=== PATIENT | male | born 1985 | race Caucasian/White ===

== ENCOUNTER 2020-08-31 02:56 | Emergency (ER) | payer MEDICAID ==
--- NOTE | 2020-08-31 03:46 | EDM.PDOC ---
ED HPI GENERAL MEDICAL PROBLEM - General Chief Complaint: General Stated Complaint: anxiety Time Seen by Provider: 08/31/20 03:15 Source of Information: Reports: Patient History Limitations: Reports: Other (admits to meth use) - History of Present Illness INITIAL COMMENTS - FREE TEXT/NARRATIVE: Alex is a 34 year old male who presents to ER with increased anxiety and worries in regards to possibly having the "hanta virus". States he has been hearing rats/mice crawling through his [place] in his home. States feels they are invested there after a building was torn down about 2 blocks from his house and settled in his home. He has not found any rats nor any droppings but states "worries that there is a 36% chance if he has Hanta virus he will ". States 3 nights ago "he then woke up after he was choking on phlegm in his throat". Worried the phlegm is from his lungs. Denies shortness of breath or fever but admits he "cannot take a deep breath due to all of his meth use in the past". Admits to using meth daily, had it this evening. History of panic attacks and anxiety, has been on Ativan in the past but now prays and that finds him relief. Tonight that did not work as he was afraid for his lungs. Patient has considerable flight of ideas, continually jumping from one topic to the next, ie. his child, his father, his wood burning stove, his house falling down, odd jobs he has been doing, praying, etc. Shares that he was being seen by a psychiatrist as well in [place] and was diagnosed with ADHD and placed on Adderall as well as bipolar disorder. Onset: Gradual Duration: Day(s):, Waxing/Waning Location: Reports: Generalized Associated Symptoms: Reports: Shortness of Breath. Denies: Confusion, Chest Pain, Cough, Diaphoresis, Fever/Chills, Loss of Appetite, Nausea/Vomiting, Seizure - Related Data Allergies Allergy/AdvReac Type Severity Reaction Status Date / Time No Known Allergies Allergy Verified 08/31/20 02:57 Home Meds: Home Meds Amphetamine/Dextroamphetamine [Adderall] 20 mg PO DAILY 08/31/20 [History] Past Medical History Psychiatric History: Reports: Addiction, Bipolar, OCD Social & Family History - Family History Family Medical History: No Pertinent Family History - Tobacco Use Tobacco Use Status *Q: Current Every Day Tobacco User Years of Tobacco use: 20 Packs/Tins Daily: 0.5 - Caffeine Use Caffeine Use: Reports: Coffee - Recreational Drug Use Recreational Drug Use: Yes Recreational Drug Type: Reports: Marijuana/Hashish, Methamphetamine Recreational Drug Use Frequency: Daily ED ROS GENERAL - Review of Systems Review Of Systems: See Below Constitutional: Denies: Fever, Chills, Malaise, Weakness, Fatigue, Decreased Appetite HEENT: Reports: Rhinitis. Denies: Ear Pain, Sinus Problem, Throat Pain Respiratory: Reports: Shortness of Breath, Sputum (one time episode 3 days ago). Denies: Wheezing, Pleuritic Chest Pain, Cough Cardiovascular: Denies: Chest Pain, Edema, Lightheadedness Endocrine: Denies: Fatigue GI/Abdominal: Reports: Constipation. Denies: Abdominal Pain, Diarrhea, Nausea, Vomiting : Reports: No Symptoms Musculoskeletal: Reports: No Symptoms Skin: Reports: No Symptoms Neurological: Denies: Dizziness, Headache Psychiatric: Reports: Anxiety ED EXAM, GENERAL - Physical Exam Exam: See Below Exam Limited By: Intoxication (meth use) General Appearance: Alert, WD/WN, No Apparent Distress Ears: Normal External Exam, Normal TMs Nose: Normal Inspection, Normal Mucosa, No Blood Throat/Mouth: Normal Inspection, Normal Oropharynx Head: Normocephalic Neck: Normal Inspection, Supple, Non-Tender Respiratory/Chest: No Respiratory Distress, Lungs Clear, Normal Breath Sounds Cardiovascular: Regular Rate, Rhythm Extremities: Normal Inspection, No Pedal Edema Neurological: Alert, Oriented Psychiatric: Anxious Skin Exam: Warm, Dry Course - Vital Signs Last Recorded V/S: Last Vital Signs Temp 97.4 F 08/31/20 02:59 Pulse 79 08/31/20 02:59 Resp 18 08/31/20 02:59 BP 131/102 H 08/31/20 02:59 Pulse Ox 98 08/31/20 02:59 - Re-Assessments/Exams Free Text/Narrative Re-Assessment/Exam: 08/31/20 Much discussion/conversation with patient. More relaxed than on arrival. Reassured of normal exam and stable vital signs. Discussed a dose of Ativan to help him relax and a different place to stay due to worries about his home but states he will sleep in his garage tonight. Declines the Ativan, states "will just pray more as that helps me through". ADvised to return if any change in breathing, fevers or worsening concerns. Departure - Departure Time of Disposition: 03:44 Disposition: Home, Self-Care 01 Condition: Undetermined Clinical Impression: Anxiety - Discharge Information *PRESCRIPTION DRUG MONITORING PROGRAM REVIEWED*: No *COPY OF PRESCRIPTION DRUG MONITORING REPORT IN PATIENT DAMIEN: No Instructions: Managing Anxiety, Adult Referrals: Lakshmi Majano PA [Primary Care Provider] - Forms: ED Department Discharge Additional Instructions: 1. Rest 2. If develop changes in breathing, fevers, nausea or vomiting, return to ER or follow up with your provider for anxiety 3. Call with any questions Sepsis Event Note (ED) - Evaluation Sepsis Screening Result: No Definite Risk
== END 2020-08-31 03:50 | disposition home or self-care (01) ==
LOC: CC.ED 02:56
DX: F41.9 Anxiety disorder, unspecified (principal); Z72.0 Tobacco use
CPT/HCPCS: 99283

== ENCOUNTER 2020-09-14 20:27 | Emergency (ER) | payer MEDICAID ==
--- NOTE | 2020-09-14 20:58 | EDM.PDOC ---
ED HPI GENERAL MEDICAL PROBLEM - General Chief Complaint: General Stated Complaint: stomach burning Time Seen by Provider: 09/14/20 20:45 Source of Information: Reports: Patient History Limitations: Reports: Other (flight of ideas) - History of Present Illness INITIAL COMMENTS - FREE TEXT/NARRATIVE: Troy is a 34 yo male who presents to the ED with c/o burning stomach. He repo rts he feels like he did the last time when he was seen here and thinks its either his "body filling with hydrochloric acid, the coronavirus or the hanta virus." He was tested for the hantavirus a few weeks back when he presented with the same complaint and was negative. He reports there are "multiple rodents in the [place] of his house." He reports he has read it takes 10-14 days for the hanta virus to set in and he has had repeat exposure to these rodents. He reports he was unable to sleep last night as the "rodents were so loud." Reports he has a burning sensation in his abdomen. Does report he feels like something is stuck in his throat. Denies any change in diet. Denies any abdominal pain, fever, chest pain, shortness of breath. Reports occasional nausea. No vomiting. He does report daily meth use. He reports he has been a chronic user for a number of years. He does have flight of ideas while describing the situation/his symptoms. He feels like he needs to see a specialist for his body filling with hydrochloric acid. Duration: Getting Worse Location: Reports: Abdomen Quality: Reports: Burning Associated Symptoms: Reports: Nausea/Vomiting (nausea, no vomiting). Denies: Confusion, Chest Pain, Cough, cough w sputum, Diaphoresis, Fever/Chills, Headaches, Loss of Appetite, Malaise, Rash, Seizure, Shortness of Breath, Syncope, Weakness - Related Data Allergies Allergy/AdvReac Type Severity Reaction Status Date / Time No Known Allergies Allergy Verified 08/31/20 02:57 Home Meds: Home Meds Amphetamine/Dextroamphetamine [Adderall] 20 mg PO DAILY 08/31/20 [History] Pantoprazole Sodium [Protonix] 40 mg PO DAILY #30 tablet. 09/14/20 [Rx] Past Medical History Psychiatric History: Reports: Addiction, Bipolar, OCD Social & Family History - Family History Family Medical History: No Pertinent Family History - Tobacco Use Tobacco Use Status *Q: Current Every Day Tobacco User - Caffeine Use Caffeine Use: Reports: Coffee - Recreational Drug Use Recreational Drug Use: Yes Recreational Drug Type: Reports: Methamphetamine Recreational Drug Use Frequency: Daily ED ROS GENERAL - Review of Systems Review Of Systems: Comprehensive ROS is negative, except as noted in HPI. ED EXAM, GENERAL - Physical Exam Exam: See Below General Appearance: Alert, WD/WN, No Apparent Distress, Anxious Eye Exam: Bilateral Eye: EOMI, Normal Fundi, Normal Inspection, PERRL Throat/Mouth: Normal Inspection, Normal Lips, Normal Teeth, Normal Gums, Normal Oropharynx, Normal Voice, No Airway Compromise Head: Atraumatic, Normocephalic Neck: Normal Inspection, Supple, Non-Tender, Full Range of Motion Respiratory/Chest: No Respiratory Distress, Lungs Clear, Normal Breath Sounds, No Accessory Muscle Use, Chest Non-Tender Cardiovascular: Normal Peripheral Pulses, Regular Rate, Rhythm, No Edema, No Gallop, No JVD, No Murmur, No Rub GI/Abdominal: Normal Bowel Sounds, Soft, Tender (mild tenderness epigastric area) Back Exam: Normal Inspection, Full Range of Motion, NT Extremities: Normal Inspection, Normal Range of Motion, Non-Tender, Normal Capillary Refill, No Pedal Edema Neurological: Alert, Oriented, No Motor/Sensory Deficits Psychiatric: Anxious, Other (flight of ideas ) Skin Exam: Warm, Dry Lymphatic: No Adenopathy Course - Orders/Labs/Meds Labs: Laboratory Tests 09/14/20 09/14/20 09/14/20 Range/Units 20:50 20:50 20:50 WBC 6.8 (5.0-10.0) 10^3/uL RBC 4.97 (4.50-6.00) 10^6/uL Hgb 15.7 (14.0-18.0) g/dL Hct 43.9 (40.0-54.0) % MCV 88.3 (82.0-94.0) fL MCH 31.6 (27.0-32.0) pg MCHC 35.8 (33.0-38.0) g/dL RDW Coeff of Vladimir 12.6 (11.0-15.0) % Plt Count 200 (150-400) 10^3/uL Neut % (Auto) 60.9 (35-85) % Lymph % (Auto) 28.3 (10-55) % [place] % (Auto) 9.0 (0-16) % Eos % (Auto) 1.5 (0-5) % Baso % (Auto) 0.3 (0-3) % Neut # (Auto) 4.11 (1.80-7.00) 10^3/uL Lymph # (Auto) 1.91 (1.00-4.80) 10^3/uL [place] # (Auto) 0.61 (0.00-0.80) 10^3/uL Eos # (Auto) 0.10 (0.00-0.45) 10^3/uL Baso # (Auto) 0.02 10^3/uL Sodium 140 (136-145) mEq/L Potassium 3.7 (3.5-5.0) mEq/L Chloride 102 (98-106) mEq/L Carbon Dioxide 26 (21-32) mmol/L BUN 25 H D (7-18) mg/dL Creatinine 0.9 (0.7-1.3) mg/dL Est Cr Clr Drug Dosing TNP Estimated GFR (MDRD) > 60 (>=60) mL/min Glucose 96 (75-99) mg/dL Calcium 8.7 (8.4-10.1) mg/dL Total Bilirubin 0.8 (0.0-1.0) mg/dL AST 14 L (15-37) U/L ALT 27 (12-78) U/L Alkaline Phosphatase 56 (46-116) U/L C-Reactive Protein < 0.2 L (0.2-0.8) mg/dL Total Protein 7.4 (6.4-8.2) g/dL Albumin 4.2 (3.4-5.0) g/dL Urine Color (YELLOW) Urine Appearance (CLEAR) Urine pH (4.5-8.0) Ur Specific Camas (1.003-1.020) Urine Protein (NEGATIVE) mg/dL Urine Glucose (UA) (NEGATIVE) mg/dL Urine Ketones (NEGATIVE) mg/dL Urine Occult Blood (NEGATIVE) Urine Nitrite (NEGATIVE) Urine Bilirubin (NEGATIVE) Urine Urobilinogen (0.2-1.0) EU/dL Ur Leukocyte Esterase (NEGATIVE) Urine Opiates Screen (NEGATIVE) Ur Oxycodone Screen (NEGATIVE) Urine Methadone Screen (NEGATIVE) Ur Barbiturates Screen (NEGATIVE) U Tricyclic Antidepress (NEGATIVE) Ur Phencyclidine Scrn (NEGATIVE) Ur Amphetamine Screen (NEGATIVE) U Methamphetamines Scrn (NEGATIVE) Urine MDMA Screen (NEGATIVE) U Benzodiazepines Scrn (NEGATIVE) Urine Cocaine Screen (NEGATIVE) U Marijuana (THC) Screen (NEGATIVE) SARS CoV-2 RNA Rapid JOSÉ MIGUEL Negative (NEGATIVE) 09/14/20 09/14/20 Range/Units 21:20 21:20 WBC (5.0-10.0) 10^3/uL RBC (4.50-6.00) 10^6/uL Hgb (14.0-18.0) g/dL Hct (40.0-54.0) % MCV (82.0-94.0) fL MCH (27.0-32.0) pg MCHC (33.0-38.0) g/dL RDW Coeff of Vladimir (11.0-15.0) % Plt Count (150-400) 10^3/uL Neut % (Auto) (35-85) % Lymph % (Auto) (10-55) % [place] % (Auto) (0-16) % Eos % (Auto) (0-5) % Baso % (Auto) (0-3) % Neut # (Auto) (1.80-7.00) 10^3/uL Lymph # (Auto) (1.00-4.80) 10^3/uL [place] # (Auto) (0.00-0.80) 10^3/uL Eos # (Auto) (0.00-0.45) 10^3/uL Baso # (Auto) 10^3/uL Sodium (136-145) mEq/L Potassium (3.5-5.0) mEq/L Chloride (98-106) mEq/L Carbon Dioxide (21-32) mmol/L BUN (7-18) mg/dL Creatinine (0.7-1.3) mg/dL Est Cr Clr Drug Dosing Estimated GFR (MDRD) (>=60) mL/min Glucose (75-99) mg/dL Calcium (8.4-10.1) mg/dL Total Bilirubin (0.0-1.0) mg/dL AST (15-37) U/L ALT (12-78) U/L Alkaline Phosphatase (46-116) U/L C-Reactive Protein (0.2-0.8) mg/dL Total Protein (6.4-8.2) g/dL Albumin (3.4-5.0) g/dL Urine Color Yellow (YELLOW) Urine Appearance Clear (CLEAR) Urine pH 5.5 (4.5-8.0) Ur Specific Cam[place] >= 1.030 H (1.003-1.020) Urine Protein Negative (NEGATIVE) mg/dL Urine Glucose (UA) Negative (NEGATIVE) mg/dL Urine Ketones 15 H (NEGATIVE) mg/dL Urine Occult Blood Negative (NEGATIVE) Urine Nitrite Negative (NEGATIVE) Urine Bilirubin Negative (NEGATIVE) Urine Urobilinogen 0.2 (0.2-1.0) EU/dL Ur Leukocyte Esterase Negative (NEGATIVE) Urine Opiates Screen Negative (NEGATIVE) Ur Oxycodone Screen Negative (NEGATIVE) Urine Methadone Screen Negative (NEGATIVE) Ur Barbiturates Screen Negative (NEGATIVE) U Tricyclic Antidepress Negative (NEGATIVE) Ur Phencyclidine Scrn Negative (NEGATIVE) Ur Amphetamine Screen Positive H (NEGATIVE) U Methamphetamines Scrn Positive H (NEGATIVE) Urine MDMA Screen Positive H (NEGATIVE) U Benzodiazepines Scrn Negative (NEGATIVE) Urine Cocaine Screen Negative (NEGATIVE) U Marijuana (THC) Screen Positive H (NEGATIVE) SARS CoV-2 RNA Rapid JOSÉ MIGUEL (NEGATIVE) Meds: Medications Discontinued Medications Generic Name Dose Route Start Last Admin Trade Name Freq PRN Reason Stop Dose Admin Pantoprazole Sodium 40 mg 09/14/20 21:20 Pantoprazole 40 Mg Tab.Cr PO 09/14/20 21:21 STAT STA Departure - Departure Time of Disposition: 21:35 Disposition: Home, Self-Care 01 Condition: Good Clinical Impression: GERD (gastroesophageal reflux disease) Qualifiers: Esophagitis presence: without esophagitis Qualified Code(s): K21.9 - Gastro- esophageal reflux disease without esophagitis - Discharge Information *PRESCRIPTION DRUG MONITORING PROGRAM REVIEWED*: Not Applicable *COPY OF PRESCRIPTION DRUG MONITORING REPORT IN PATIENT DAMIEN: Not Applicable Prescriptions: Pantoprazole Sodium [Protonix] 40 mg PO DAILY #30 tablet. Instructions: Food Choices for Gastroesophageal Reflux Disease, Adult, Jhony roesophageal Reflux Disease, Adult, [id number] Forms: ED Department Discharge Additional Instructions: - Recommend starting Protonix daily to see if this helps symptoms - Avoid drug use - Follow up in clinic if symptoms persist - Return to ED for EMERGENT needs - Problem List & Annotations (1) GERD (gastroesophageal reflux disease) SNOMED Code(s): 232881985 Code(s): K21.9 - GASTRO-ESOPHAGEAL REFLUX DISEASE WITHOUT ESOPHAGITIS Status: Acute Qualifiers: Esophagitis presence: without esophagitis Qualified Code(s): K21.9 - Gastro-esophageal reflux disease without esophagitis (2) Drug abuse, daily use SNOMED Code(s): 161229401 Code(s): F19.10 - OTHER PSYCHOACTIVE SUBSTANCE ABUSE, UNCOMPLICATED Status: Acute - Problem List Review Problem List Initiated/Reviewed/Updated: Yes - Assessment/Plan Assessment:: GERD Drug Abuse, daily Plan: Labs all unremarkable except UDS is positive for multiple Patient declines Protonix. Discussed trying this daily to see if this helps burning symptoms. He reports he "doesn't like putting things in his body." Patient discharged from facility in satisfactory condition.
[2020-09-14 21:08] LABS: CHLORIDE,CL 102 mEq/L (98-106); SODIUM,NA 140 mEq/L (136-145)
[2020-09-14] MEDS ORDERED: Pantoprazole 40 MG Tab.CR PO STA (21:20)
== END 2020-09-14 21:45 | disposition home or self-care (01) ==
LOC: CC.ED 20:27
DX: K21.9 Gastro-esophageal reflux disease without esophagitis (principal); Z72.0 Tobacco use; Z20.822 Contact with and (suspected) exposure to COVID-19
CPT/HCPCS: 36415; 80053; 80305-QW; 81003; 85025; 86140; 99283; U0002

== ENCOUNTER 2020-11-08 13:31 | Emergency (ER) | payer MEDICAID ==
--- NOTE | 2020-11-08 13:54 | EDM.PDOC ---
ED HPI GENERAL MEDICAL PROBLEM - General Chief Complaint: Bite:Animal, Insect Stated Complaint: "I have flees" Time Seen by Provider: 11/08/20 13:40 Source of Information: Reports: Patient History Limitations: Reports: Other (meth use daily) - History of Present Illness INITIAL COMMENTS - FREE TEXT/NARRATIVE: Alex is a 35 year old male who presents to the ER with concerns of having fleas. Has been seen multiple times in the last 2 months for skin concerns. Has been treated for scabies x2, had hanta virus testing x2, felt he had rat fever, cat scratch fever and dermatitis. He denies any itching at this time. Sees "them jumping on his skin". Concerned as he has "heard rats crawling in his [place] and has tore his house apart and found rat droppings". Has worried constantly about parasites on his skin as a result. Was also seen in [place] and given Permethrin cream and is out and feels he needs a new prescription for this to control them. Does admit to using meth daily. Does have multiple red papular areas on his legs, several scabs. Feels he can see "webbing to his fingers". Says has exoskeletons on his skin No fevers, shortness of breath, sore throat or cough. Onset: Gradual Duration: Week(s): Location: Reports: Upper Extremity, Left, Upper Extremity, Right, Lower Extremity, Left, Lower Extremity, Right Improves with: Reports: Medication Associated Symptoms: Denies: Cough, Fever/Chills, Headaches, Loss of Appetite, Nausea/Vomiting, Shortness of Breath - Related Data Allergies Allergy/AdvReac Type Severity Reaction Status Date / Time No Known Allergies Allergy Verified 11/08/20 13:37 Home Meds: Home Meds Amphetamine/Dextroamphetamine [Adderall] 20 mg PO DAILY 08/31/20 [History] Pantoprazole Sodium [Protonix] 40 mg PO DAILY #30 tablet. 09/14/20 [Rx] Past Medical History - Past Health History Medical/Surgical History: Denies Medical/Surgical History Psychiatric History: Reports: Addiction, Bipolar, OCD Social & Family History - Family History Family Medical History: No Pertinent Family History - Tobacco Use Tobacco Use Status *Q: Unknown Ever Used Tobacco - Caffeine Use Caffeine Use: Reports: Coffee ED ROS GENERAL - Review of Systems Review Of Systems: See Below Constitutional: Denies: Fever, Chills, Malaise, Weakness, Fatigue HEENT: Denies: Ear Pain, Rhinitis, Sinus Problem, Throat Pain, Vertigo Respiratory: Denies: Shortness of Breath, Cough Cardiovascular: Denies: Chest Pain, Lightheadedness Endocrine: Denies: Fatigue GI/Abdominal: Denies: Abdominal Pain, Nausea, Vomiting : Reports: No Symptoms Musculoskeletal: Reports: No Symptoms Skin: Reports: Rash ED EXAM, ANIMAL BITE - Physical Exam Exam: See Below Exam Limited By: No Limitations General Appearance: Alert, WD/WN, No Apparent Distress Ears: Normal External Exam, Normal TMs Nose: Normal Inspection, Normal Mucosa, No Blood Throat/Mouth: Normal Inspection, Normal Oropharynx Head: Normocephalic Neck: Normal Inspection, Supple, Non-Tender Respiratory/Chest: No Respiratory Distress, Lungs Clear, Normal Breath Sounds Cardiovascular: Regular Rate, Rhythm Neurological: Alert, Oriented Skin Exam: Other (has red papules on his legs, pimple-like in appearance. Mild scabs noted. Do not appreciate any burrows between his fingers. hands are clear. Arms are clear. ) Course - Re-Assessments/Exams Free Text/Narrative Re-Assessment/Exam: 11/08/20 14:04 Advised patient if he is worried about infestation in his home,he needs to have it fumigated and not stay there for a few days. Needs to shower and clear skin. Apply hydrocortisone to the areas on his legs that are red. Given permethrin refill to use as needed as is convinced that has helped him in the past. Departure - Departure Time of Disposition: 13:51 Disposition: Home, Self-Care 01 Clinical Impression: Dermatitis - Discharge Information *PRESCRIPTION DRUG MONITORING PROGRAM REVIEWED*: No *COPY OF PRESCRIPTION DRUG MONITORING REPORT IN PATIENT DAMIEN: No Instructions: Insect Bite, Adult, [id number] Forms: ED Department Discharge Additional Instructions: 1. Permethrin cream~ apply all over, leave on for 12 hours and then bathe. Reapply in 7 days if needed 2. Hydrocortisone cream for any itching on the skin 3. Consider fumigation of house or staying elsewhere
== END 2020-11-08 14:00 | disposition home or self-care (01) ==
LOC: CC.ED 13:31
DX: L30.9 Dermatitis, unspecified (principal)
CPT/HCPCS: 99282

== ENCOUNTER 2020-12-06 18:36 | Emergency (ER) | payer MEDICAID ==
--- NOTE | 2020-12-06 20:14 | EDM.PDOC ---
ED HPI GENERAL MEDICAL PROBLEM - General Chief Complaint: General Stated Complaint: "tape worm" Time Seen by Provider: 12/06/20 19:00 Source of Information: Reports: Patient History Limitations: Reports: Other (meth use) - History of Present Illness INITIAL COMMENTS - FREE TEXT/NARRATIVE: Troy is a 35 year old who presents with concerns initially of having crabs/lice on his arms and scalp and a tape worm. Relates is fairly certain he has lice as he has "seen the hairs lying flat around sores on his arm and that is because they are mating". Said he has pulled off "black eggs off his skin". Patient jumps from one topic to the next with multiple concerns. Has small pinpoint area on his skin of his foot that he relates was infested by a roundworm and it is now in his blood stream and working its way through his liver to his brain as he "has jabs of pain here and there". Admits to crushing abdominal pain, back spasms, neck spasms at times when the parasites are tr avelling through my blood. Has no blood in his stools. Does think "2 eggs fell out of his rectum today and he didn't think to keep them". Is certain he passed a worm with his stools several days ago. Patient has been seen multiple times over the last 2 months with skin complaints. Has been tested for the hanta virus x2 as states he has rat droppings in his home and he hears them in his [place]. Has now fixed the drywall holes in his [place] but feels his house is infested with parasites but refuses to stay elsewhere. Wants a blood test to check for parasites. Points to several small red papules on his skin where he feels the crabs are. Patient admits to daily meth use. When questioned about his skin concerns being related to that, said he has used for years and never had skin concerns before. Admits he reads the CDC website and has all the symptoms of a parasite infection. Onset: Unknown/Unsure Duration: Week(s):, Chronic Location: Reports: Generalized Improves with: Reports: None (admits has used permethrin several times. Was treated with doxycycline for a skin infection. Had imervectin although no testing has proven evidence of parasites. ) Right Feet Pain Score (Numeric/FACES): 8 - Related Data Allergies Allergy/AdvReac Type Severity Reaction Status Date / Time No Known Allergies Allergy Verified 12/06/20 18:44 Home Meds: Home Meds Amphetamine/Dextroamphetamine [Adderall] 20 mg PO DAILY 08/31/20 [History] Past Medical History - Past Health History Medical/Surgical History: Denies Medical/Surgical History Psychiatric History: Reports: Addiction, Bipolar, OCD - Infectious Disease History Infectious Disease History: Reports: None Social & Family History - Family History Family Medical History: No Pertinent Family History - Tobacco Use Tobacco Use Status *Q: Former Tobacco User Used Tobacco, but Quit: Yes Month/Year Tobacco Last Used: 11/06/20 - Caffeine Use Caffeine Use: Reports: Soda - Recreational Drug Use Recreational Drug Use: Yes Drug Use in Last 12 Months: Yes Recreational Drug Type: Reports: Marijuana/Hashish, Methamphetamine Recreational Drug Last Use: today ED ROS GENERAL - Review of Systems Review Of Systems: See Below Constitutional: Reports: Malaise, Fatigue. Denies: Fever, Chills, Weakness, Decreased Appetite HEENT: Denies: Ear Pain, Sinus Problem, Throat Pain, Vertigo Respiratory: Denies: Shortness of Breath, Cough Cardiovascular: Denies: Chest Pain, Edema, Lightheadedness Endocrine: Reports: Fatigue GI/Abdominal: Denies: Abdominal Pain, Constipation, Diarrhea, Nausea, Vomiting : Reports: No Symptoms Musculoskeletal: Reports: No Symptoms Skin: Reports: Other (sores and "sees parasites on his skin") Neurological: Denies: Dizziness, Headache, Numbness, Tingling, Weakness Psychiatric: Reports: Other (daily meth use) ED EXAM, GENERAL - Physical Exam Exam: See Below Exam Limited By: No Limitations General Appearance: Alert, WD/WN, No Apparent Distress Ears: Normal External Exam, Normal TMs Nose: Normal Inspection, Normal Mucosa, No Blood Throat/Mouth: Normal Inspection, Normal Oropharynx Head: Normocephalic Neck: Normal Inspection, Supple, Non-Tender Respiratory/Chest: No Respiratory Distress, Lungs Clear, Normal Breath Sounds Cardiovascular: Regular Rate, Rhythm GI/Abdominal: Normal Bowel Sounds, Soft, Non-Tender Extremities: Normal Inspection, No Pedal Edema Neurological: Alert, Oriented Skin Exam: Warm, Dry, Other (do not see evidence of lice or nits on his skin. Has several small papular lesions that were also present last time he was evaluated in ER) Course - Vital Signs Last Recorded V/S: Last Vital Signs Temp 96.9 F 12/06/20 18:39 Pulse 81 12/06/20 18:39 Resp 16 12/06/20 18:39 BP 126/84 12/06/20 18:39 Pulse Ox 99 12/06/20 18:39 - Re-Assessments/Exams Free Text/Narrative Re-Assessment/Exam: 12/06/201999- Sat with patient for the last hour with his plethora of symptoms. Did contact lab about a possible lab test for parasites to reassure patient but was advised to have patient collect stools for Ova and parasites but patient is not happy with that and refuses to collect the stools. Also offered a refill on his permethrin cream but admits has that at home already to use and has tried it several times. Advised patient that his skin complaints could be related to his chronic meth use but refuses to believe that and continues to have flight of ideas and a plethora of complaints. Departure - Departure Time of Disposition: 20:11 Disposition: Home, Self-Care 01 Condition: Good Clinical Impression: Drug abuse, daily use, Dermatitis - Discharge Information *PRESCRIPTION DRUG MONITORING PROGRAM REVIEWED*: No *COPY OF PRESCRIPTION DRUG MONITORING REPORT IN PATIENT DAMIEN: No Referrals: PCP,None [Primary Care Provider] - Forms: ED Department Discharge Additional Instructions: 1. Collect stool studies to evaluate for parasitic infection 2. Permethrin cream as have at home 3. Follow up with primary care provider for ongoing concerns. Sepsis Event Note (ED) - Evaluation Sepsis Screening Result: No Definite Risk - Focused Exam Vital Signs: Vital Signs Temp Pulse Resp BP Pulse Ox 12/06/20 18:39 96.9 F 81 16 126/84 99
== END 2020-12-06 20:25 | disposition home or self-care (01) ==
LOC: CC.ED 18:36
DX: L30.9 Dermatitis, unspecified (principal); F15.10 Other stimulant abuse, uncomplicated; Z87.891 Personal history of nicotine dependence
CPT/HCPCS: 99283

== ENCOUNTER 2021-01-22 16:45 | Emergency (ER) | payer MEDICAID ==
--- NOTE | 2021-01-22 17:07 | EDM.PDOC ---
ED HPI GENERAL MEDICAL PROBLEM - General Chief Complaint: General Stated Complaint: panic attack Time Seen by Provider: 01/22/21 17:03 Source of Information: Reports: Patient, EMS History Limitations: Reports: No Limitations - History of Present Illness INITIAL COMMENTS - FREE TEXT/NARRATIVE: Troy is a 35 yo male who is brought into the ED via [facility] with concerns of an asbestos exposure and caused him to have a panic attack. Vital signs upon arrival showed a blood pressure of 124/77, pulse of 111, temperature 97.2 and oxygen saturation of 97%. Upon arrival to the ED, patient did have the local police department arrive to visit with him. He admits to smoking methamphetamines this afternoon. States he is doing a lot better now and just needs his anxiety medication refilled. At the same time, he admits he doesn't want any other drugs. He admits that by praying it does seem to help. Didn't mean to call the ambulance, stating he was in the middle of praying and thought he better call 911. He restates he will be fine as long as he can breathe. Police offer has been in talking with patient and has discussed illicit drug use and finding a way to stop as it appears to have increased his anxiety. He did use to see Meredith Long prior as he has a diagnosis of ADHD. He has had flights of ideas while in the ED tonight. States he also has rats in his attic but can't seem to find them only hears them. - Related Data Allergies Allergy/AdvReac Type Severity Reaction Status Date / Time No Known Allergies Allergy Verified 01/22/21 16:53 Home Meds: Home Meds . [No Known Home Meds] 01/22/21 [History] Past Medical History - Past Health History Medical/Surgical History: Denies Medical/Surgical History Psychiatric History: Reports: Addiction, Bipolar, OCD - Infectious Disease History Infectious Disease History: Reports: None Social & Family History - Family History Family Medical History: No Pertinent Family History - Caffeine Use Caffeine Use: Reports: Soda ED ROS GENERAL - Review of Systems Review Of Systems: Comprehensive ROS is negative, except as noted in HPI. Constitutional: Reports: Chills ED EXAM, GENERAL - Physical Exam Exam: See Below Exam Limited By: Intoxication (recent meth use) General Appearance: Anxious Head: Atraumatic, Normocephalic Neck: Normal Inspection Respiratory/Chest: No Respiratory Distress, Lungs Clear, Normal Breath Sounds, No Accessory Muscle Use Cardiovascular: Regular Rate, Rhythm, No Edema, No Murmur Extremities: No Pedal Edema Neurological: Alert, No Motor/Sensory Deficits Psychiatric: Anxious Skin Exam: Warm, Dry, Intact. No: Rash Course - Orders/Labs/Meds Orders: Active Orders 24 hr Category Date Time Status Chest 2V [CR] Stat Exams 01/22/21 17:30 Ordered Departure - Departure Time of Disposition: 17:55 Disposition: Home, Self-Care 01 Clinical Impression: Drug abuse, daily use, Anxiety, Panic attacks - Discharge Information Instructions: Panic Attack, [id number], Finding Treatment for Addiction, Illegal Drug Use Information, Adult, Managing Anxiety, Adult Forms: ED Department Discharge Additional Instructions: 1) Chest x-ray did not show any sign of asbestos, lungs overall looked clear. No concerning findings 2) Vital signs have been excellent, normal values 3) Encourage to follow up in clinic for overall check up to have HIV, Lead, etc... all the labs you are concerned about 4) Re-establish care with Meredith Fernandez to discuss treatment 5) Hand out provided on anxiety ) Return if symptoms worsen or any concerns. - Problem List & Annotations (1) Anxiety SNOMED Code(s): 36763289 Code(s): F41.9 - ANXIETY DISORDER, UNSPECIFIED Status: Acute (2) Drug abuse, daily use SNOMED Code(s): 480782371 Code(s): F19.10 - OTHER PSYCHOACTIVE SUBSTANCE ABUSE, UNCOMPLICATED Status: Acute (3) Panic attacks SNOMED Code(s): 848022189 Code(s): F41.0 - PANIC DISORDER [EPISODIC PAROXYSMAL ANXIETY] Status: Acute - My Orders Last 24 Hours: My Active Orders 01/22/21 17:30 Chest 2V [CR] Stat - Assessment/Plan Last 24 Hours: My Active Orders 01/22/21 17:30 Chest 2V [CR] Stat Plan: Alex was a lot calmer after speaking to staff and the peace officer. Was able to eat some fruit cups which did help as well. We encourage Alex to refrain from any further drug use, which has caused multiple anxiety/panic attacks presently and in the past. Will get patient set up with psychiatry as well to reestablish care. Patient was given 0.5mg Ativan while in the ED prior to discharge as patient did feel he needed something to help him. Patient in agreement with current plan and requests to be discharged home.
[2021-01-22] MEDS ORDERED: LORazepam 0.5 MG Tab PO ONE (17:49)
== END 2021-01-22 18:00 | disposition home or self-care (01) ==
LOC: CC.ED 16:45
DX: F41.0 Panic disorder [episodic paroxysmal anxiety] (principal); F19.10 Other psychoactive substance abuse, uncomplicated
CPT/HCPCS: 71046; 99284-25; A9270-GY

== ENCOUNTER 2021-09-01 07:15 | Emergency (ER) | payer MEDICAID | END 2021-09-01 08:01 | disposition home or self-care (01) | LOC: CC.ED 07:15 | DX: F22 Delusional disorders (principal); F15.90 Other stimulant use, unspecified, uncomplicated; Z72.0 Tobacco use | CPT/HCPCS: 99283; 99284 ==

== ENCOUNTER 2022-03-24 02:50 | Emergency (ER) | payer MEDICAID ==
[2022-03-24] MEDS ORDERED: Magnesium Citrate Solution 296 ML Bottle PO ONE (03:42)
[2022-03-24 03:49] LABS: AMPHETAMINES,URINE POSITIVE (NEGATIVE); BARBITURATES,URINE NEGATIVE (NEGATIVE); BENZODIAZEPINE,URINE NEGATIVE (NEGATIVE); MDMA (ECSTASY), URINE POSITIVE (NEGATIVE); METHADONE,URINE NEGATIVE (NEGATIVE); METHAMPHETAMINES,URINE POSITIVE (NEGATIVE); OPIATES,URINE NEGATIVE (NEGATIVE); PHENCYCLIDINE,URINE NEGATIVE (NEGATIVE); TCA,URINE NEGATIVE (NEGATIVE)
[2022-03-24 03:50] LABS: OXYCODONE,URINE NEGATIVE (NEGATIVE)
== END 2022-03-24 04:52 | disposition home or self-care (01) ==
LOC: CC.ED 02:50
DX: K59.00 Constipation, unspecified (principal); F19.10 Other psychoactive substance abuse, uncomplicated; F17.210 Nicotine dependence, cigarettes, uncomplicated
CPT/HCPCS: 74019; 80305; 81003; 99283; A9270